=== PATIENT | female | born 1965 | race Caucasian/White ===

== ENCOUNTER → 2020-09-01 06:23 | Outpatient (CLI) | payer OTHER, SELFPAY ==
--- NOTE | 2020-09-01 14:13 | NEURO ---
NCS and/or EMG Patient Report Ordering Doctor: Orin Wesley DATE OF SERVICE: 09/01/20 Catherine Brantley is a 54-year-old female presents for electrodiagnostic testing of the right upper limb. She reports numbness tingling and weakness over the past several weeks. Electrodiagnostic findings: Right median motor nerve demonstrates prolonged latency with normal amplitude and reduced conduction velocity. Normal ulnar motor responses noted. Normal median ulnar F waves. Absent median sensory latency at the wrist and palm. Normal ulnar and radial sensory responses. Needle EMG, all muscles tested in the right upper limb showed no evidence of denervation were with normal motor unit action potentials. Electrodiagnostic assessment: This is an abnormal study in the right upper limb. 1. Electrodiagnostic findings demonstrate right-sided median mononeuropathy. This is consistent with a moderate to advanced right carpal tunnel syndrome. 2. No electrodiagnostic evidence is noted for cervical radiculopathy. If there are any further questions, please do not hesitate to contact me.
== END ==
PROVIDERS: PCP Internal Medicine; Referring Provider Internal Medicine; Visit Provider Internal Medicine
DX: M50.20 Other cervical disc displacement, unspecified cervical region (principal)
CPT/HCPCS: 95886; 95910